=== PATIENT | female | born 1965 | race Caucasian/White ===

== ENCOUNTER 2017-07-30 00:35 | Emergency (ER) | payer OTHER ==
[~2017-07-30] VITALS: Ht 170.2 cm; Wt 85.5 kg
[2017-07-30 00:40] VITALS: BP 139/80; RESP 12; O2SAT 99
--- NOTE | 2017-07-30 00:55 | ED.REPORT ---
HPI-Facial Injury Date of Service Jul 30, 2017 ED Provider: Tim Rod DO The pt is a 51 year old female with a hx of RA, and hypothyroidism presenting to the ED complaining of right ear pain onset a couple of weeks ago. Associated symptoms include lightheadedness, throat pain, fatigue, and numbness and tingling of the right arm. She claims that the pain has been on and off for the past weeks, but is much more painful now. 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 She claims to have taken Tylenol to no relief earlier tonight. She denies chest pain. The patient is vague and does not think her symptoms are characteristic of stroke and she declines brain imaging initially. Nursing Notes Stated Complaint: SORE THROAT, RT EAR PAIN Chief Complaint: ENT & Mouth Nursing Notes Reviewed: Yes Allergies: Coded Allergies: No Known Allergies (Unverified , 07/30/17) General Time Seen by Provider: 01:00 Chief Complaint Other (right ear pain) Hx Obtained From: Patient Arrived By: Walk-in Onset Occurred: More than a week ago... 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 Respiratory: Denies: Shortness of breath Cardiovascular: Denies: Chest pain Physical Exam Initial Vital Signs Vital Signs (First) Date Time Temp Pulse Resp B/P Pulse Ox O2 Delivery O2 Flow Rate FiO2 07/30/17 00:40 36.6 61 12 139/80 99 Room Air Initial VS: Reviewed, Vital signs normal General/Constitutional: Well-developed, Well-nourished Respiratory: Breath sounds normal, No respiratory distress Cardiovascular: Regular rate & rhythm, Heart sounds normal Abdomen / GI: Soft, Non-tender Back: No CVA tenderness Lymphatic: No lymphadenopathy Extremities: Vascular intact, Neuro intact Skin: Warm, Dry Psychiatric: Mood/affect normal Head / Eyes: Atraumatic, Normocephalic, PERRL ENT: Atraumatic, Mucous membranes moist, Tympanic membs NL Pharynx / Tonsils / Uvula: Negative: Tonsillar erythema L, Tonsillar erythema R , Tonsillar exudate L, Tonsillar exudate R Tenderness at right ear canal Neck: Atraumatic, Supple, Full range of motion, No adenopathy Tenderness at right anterior cervical chain Neurologic: Oriented X3, Speech NL, No motor deficits, No sensory deficits, CN II - XII intact, Cerebellar NL Interpretation & Diagnostics Lab Results Interpretation Result Diagram: 07/30/17 0230 Test 07/30/17 02:30 White Blood Count 10.0th/mm3 (3.8-10.1) Red Blood Count 4.48mil/mm3 (3.90-5.20) Hemoglobin 13.3g/dL (12.0-15.6) Hematocrit 40.6% (35.0-46.0) Mean Corpuscular Volume 90.6fL (81-100) Mean Corpuscular Hemoglobin 29.7pg (27.0-35.0) Mean Corpuscular Hemoglobin Concent 32.8% (32.0-37.0) Red Cell Distribution Width 13.8% (12.3-15.4) Platelet Count 173bil/L (150-400) Neutrophils (%) (Auto) 66.8% (40-74) Lymphocytes (%) (Auto) 22.7% (14-46) Monocytes (%) (Auto) 7.3% (4-12) Eosinophils (%) (Auto) 2.7% (0-5) Basophils (%) (Auto) 0.4% (0-3) Re-Eval/Medical Decision Re-Evaluation/Progress : Time of Eval: 02:39 Re-Evaluation/Progress Note: Patient rechecked. She wanted to discuss CT scans further. She decided she wants one now. Patient informed of transfer of care to Dr. Loera at 0300. Counseled Regarding: Diagnosis, Lab results, Need for follow-up, When/why to return to ED Discharge & Departure Shift Change Sign-Out Patient Care Transferred: Yes Impression: Primary Impression: Ear pain Care Transferred to: Dr. Loera Care Transferred at: 03:00 Alok Attestation Portions of this note were transcribed by Mario Eubanks. I, Dr. Rdo personally performed the history, physical exam and medical decision-making; I reviewed and confirmed the accuracy of the information in the transcribed note. Signed by: Alok Llamas, 07/30/2017 Tim Rod DO Jul 30, 2017 00:55 Jul 30, 2017 01:07
[2017-07-30] MEDS ORDERED: Ketorolac 15 mg/mL Inj IVPUSH ONE (01:20)
[2017-07-30 02:40] LABS: BASOPHILS % (AUTO) 0.4 % (0-3); EOSINOPHILS % (AUTO) 2.7 % (0-5); MONOCYTES % (AUTO) 7.3 % (4-12); Mean Corpuscular Hemoglobin 29.7 pg (27.0-35.0); Mean Corpuscular Volume 90.6 fL (81-100); NEUTROPHILS % (AUTO) 66.8 % (40-74); Platelet Count 173 bil/L (150-400)
[2017-07-30] MEDS ORDERED: Amoxicillin-Clav 875-125 mg Tablet PO ONE (04:20)
[2017-07-30 04:40] VITALS: BP 125/74; PULSE 61; RESP 18; O2SAT 97
--- NOTE | 2017-07-30 09:32 | DRSVH ---
PROCEDURE: CT BRAIN WITHOUT CONTRAST ([id number]) INDICATIONS: ear pain, on meena TECHNIQUE: Noncontrast 4.5 mm thick angled axial sections acquired from the foramen magnum to the vertex, with c oronal reformats. COMPARISON: [facility], CT, CT NECK SOFT TISSUE W CON, 07/30/2017, 3:25. FINDINGS: Image quality: Excellent. CSF spaces: Basal cisterns are patent. No extra-axial fluid collections. Ventricles are normal in size and shape. Brain: No midline shift. No intracranial masses or hemorrhage. Diamond-white matter interface is norm al. Skull and face: Calvarium and visualized facial bones are intact, without suspicious lesions. Sinuses: Visualized sinuses and mastoids are clear. IMPRESSION: 1. No acute intracranial process. Dictated by: Zoila Vega M.D. on 07/30/2017 at 9:29 Approved by: Zoila Vega M.D. on 07/30/2017 at 9:30
--- NOTE | 2017-07-30 09:39 | DRSVH ---
PROCEDURE: CT NECK SOFT TISSUES WITH CONTRAST ([id number]) INDICATIONS: right neck pain TECHNIQUE: After the administration of intravenous contrast, 3.0 mm axial sections acquired from the sella to th e aortic arch. Additional oblique axial 3.0 mm sections acquired through the pharynx. 3 mm thick co miguel reformats were generated. For radiation dose reduction, the following was used: automated exp osure control. COMPARISON: [facility], CT, CT BRAIN WO CON, 07/30/2017, 3:25. FINDINGS: Image quality: Excellent. Lymph nodes: No enlarged lymph nodes seen throughout the neck. Vessels: Visualized vasculature appears patent. Neck spaces: The oropharynx, nasopharynx, and pharynx demonstrate no mucosal lesions. The vocal cor ds, false vocal cords, pyriform sinuses, epiglottis, vallecula, and tongue base all appear normal. E xtramucosal spaces appear unremarkable. Glands: The parotid and submandibular glands appear normal. Thyroid gland and is unremarkable in. Miscellaneous: Visualized brain and orbits appear normal. Lung apices demonstrate appearance of sev eral small faint patchy areas of opacity. Superficial soft tissues appear normal. Bones: No suspicious bony lesions. Visualized sinuses and mastoids appear unremarkable. IMPRESSION: 1. No visualized cause of neck pain. 2. Small areas of patchy opacity within the lung apices which could be related to infection or inflam matory, which can include pneumonia, mycobacterial or even fungal infection. Recommend correlation to patient's symptoms and further followup as indicated. The above was discussed with Dr. Conrado Dumont on 07/30/17 at 9:30 AM. Dictated by: Zoila Vega M.D. on 07/30/2017 at 9:30 Approved by: Zoila Vega M.D. on 07/30/2017 at 9:37
== END 2017-07-30 04:40 | disposition home or self-care (01) ==
LOC: SED 00:35
DX: H92.01 Otalgia, right ear (principal); R42 Dizziness and giddiness; R53.83 Other fatigue; R20.2 Paresthesia of skin; R07.0 Pain in throat; E03.9 Hypothyroidism, unspecified
CPT/HCPCS: 36415; 70450; 70491; 80053; 85025; 87880; 96374; 99285; J1885; Q9967